=== PATIENT | female | born 1965 | race Caucasian/White ===

== ENCOUNTER 2018-03-08 08:20 | Day surgery (SDC) | payer BC ==
[2018-03-08] MEDS ORDERED: LACTATED RINGERS 1,000 ML IV ONE (09:00)
[2018-03-08] MEDS ORDERED: fentaNYL 250 MCG/5 ML VIAL IVP ONE (09:16)
[2018-03-08] MEDS ORDERED: MIDAZOLAM 2 MG/2 ML VIAL IVP ONE (09:16)
[2018-03-08 10:36] VITALS: BP 118/67
== END 2018-03-08 08:21 | disposition home or self-care (01) ==
LOC: SDS 08:20
PROVIDERS: ATTEND Surgery
PROC: 0DJD8ZZ Inspection of Lower Intestinal Tract, Via Natural or Artificial Opening Endoscopic (ICD-10-PCS; principal; 2018-03-08 09:15)
DX: Z12.11 Encounter for screening for malignant neoplasm of colon (principal); Z98.84 Bariatric surgery status; K64.8 Other hemorrhoids
CPT/HCPCS: 45378; J3010; J7120

== ENCOUNTER 2018-03-30 19:23 | Emergency (ER) | payer BC ==
[2018-03-30] MEDS ORDERED: BUFFERED LIDOCAINE 10 ML SYRINGE SUBQ STA (20:12)
[2018-03-30] MEDS ORDERED: TETANUS/DIPHTHERIA/PERTUSSIS 0.5 ML SYRINGE IM ONE (20:30)
--- NOTE | 2018-03-30 20:33 | ED Physician Documentation ---
PD HPI HEAD INJURY - Stated complaint Stated Complaint: HD INJ/BLEEDING - Chief complaint Chief Complaint: Trauma Hd/Nk - History obtained from History obtained from: Patient, Family - History of Present Illness Mechanism of head injury: Fell Where head injury occurred: Home Timing - onset: Enter time (1899), Today Location of injury: Left, Front Quality of pain: Pain Associated symptoms: No: LOC, AMS, Amnesia, Nausea / vomiting, Neck pain, Paresthesias, Seizures, Ear drainage, Nasal drainage Symptoms improve with: Rest Symptoms worsen with: Palpation, Movement Contributing factors: No: Anticoagulated Similar symptoms before: Has not had sx before Recently seen: Not recently seen - Additional information Additional information: 52-year-old female was in her home tonight when she slipped on the steps and fell against a child gait lacerating her scalp on the edge of the metal. She had no loss of consciousness denies any postconcussive symptoms. She does indicate that she was drinking heavily at the time. She does not know about her tetanus status and she has not been ill recently. Review of Systems Constitutional: denies: Fever Eyes: denies: Decreased vision Ears: denies: Ear pain Nose: denies: Congestion Throat: denies: Sore throat Respiratory: denies: Dyspnea, Cough GI: denies: Nausea : denies: Dysuria PD PAST MEDICAL HISTORY - Past Medical History Cardiovascular: Murmur Respiratory: None Endocrine/Autoimmune: None GI: None : None HEENT: Chronic vision loss Psych: None Musculoskeletal: None Derm: None - Past Surgical History Past Surgical History: Yes General: Gastric surgery Ortho: Carpal Tunnel surgery - Present Medications Home Medications: Ambulatory Orders Medication Instructions Recorded Confirmed Multivitamin-Min/Iron/FA/Vit K 1 each PO DAILY 10/16/15 10/16/15 [Multi-Day Plus Minerals Tablet] - Allergies Allergies/Adverse Reactions: Allergies Allergy/AdvReac Type Severity Reaction Status Date / Time lactose Allergy Unknown Unknown Verified 03/30/18 19:29 - Social History Does the pt smoke?: No Smoking Status: Never smoker Does the pt drink ETOH?: Yes ETOH Use: Wine Does the pt have substance abuse?: No - Immunizations Immunizations are current?: No Immunizations: TDAP >10years/unknown - POLST Patient has POLST: No PD ED PE NORMAL - Vitals Vital signs reviewed: Yes (normal ) - General General: Alert and oriented X 3, No acute distress, Well developed/nourished - HEENT HEENT: PERRL, EOMI, Other (3.5cm laceration to the left frontal scalp) - Neck Neck: Supple, no meningeal sign, No bony TTP - Respiratory Respiratory: No respiratory distress - Derm Derm: Normal color, Warm and dry, No rash - Extremities Extremities: No deformity, No edema - Neuro Neuro: Alert and oriented X 3, lock up worker 2-12 intact, No motor deficit, No sensory deficit, Normal speech Eye Opening: Spontaneous Motor: Obeys Commands Verbal: Oriented GCS Score: 15 - Psych Psych: Normal mood, Normal affect Results - Vitals Vitals: Vital Signs - 24 hr 03/30/18 19:25 Temperature 36.2 C L Heart Rate 98 Respiratory 18 Rate Blood Pressure 128/66 O2 Saturation 98 Oxygen O2 Source Room air Procedures - Laceration (location) scalp Length in cm: 3.5 Wound type: Linear, Clean Neurovascular status: Sensory intact, Motor intact, Vascular intact Anesthesia: Lidocaine 1%, With bicarb Wound Preparation: Betadine, Irrigated copiously NS, Wound explored, To the base Skin layer closure: [place] Other: Patient tolerated well, No complications, Neurovascular intact, Dressing applied, Tetanus booster given Complexity: Simple PD MEDICAL DECISION MAKING - ED course Complexity details: considered differential, d/w patient, d/w family ED course: 52-year-old female with a scalp laceration. [place] placed to the laceration. She does not have any evidence of a significant head injury. Departure - Departure Disposition: 01 Home, Self Care Clinical Impression: Scalp laceration Qualifiers: Encounter type: initial encounter Qualified Code(s): S01.01XA - Laceration without foreign body of scalp, initial encounter Condition: Stable Instructions: ED Laceration Scalp Stitch Or Stap Follow-Up: Chintan Bashir MD [Provider Admit Priv/Credential] - Comments: jyoti should be removed in 7-10 days
[2018-03-30 20:48] VITALS: BP 101/57
== END 2018-03-30 20:47 | disposition home or self-care (01) ==
LOC: ED 19:23
DX: S01.01XA Laceration without foreign body of scalp, initial encounter (principal); W10.9XXA Fall (on) (from) unspecified stairs and steps, initial encounter; Y92.009 Unspecified place in unspecified non-institutional (private) residence as the place of occurrence of the external cause; Z23 Encounter for immunization; Z72.89 Other problems related to lifestyle
CPT/HCPCS: 12002; 90471; 99282; 99283

== ENCOUNTER 2019-07-21 13:18 | Emergency (ER) | payer BC ==
--- NOTE | 2019-07-21 13:51 | ED Physician Documentation ---
History of Present Illness - Stated complaint Stated Complaint: WEAKNESS/TIRED - Chief complaint Chief Complaint: General - History obtained from History obtained from: Patient (Is a very pleasant 53-year-old woman who had a remote gastric bypass, 4 months although her partner says for years she has had upper abdominal pain after eating. Is generally slowly worsening. For the last 2 weeks per the partner she has been pale. She is our primary care physician on Thursday, per her report at that time A rectal exam was done, and negative guaiac, and labs were done. Subsequently she was noted to have a hemoglobin of 5.5, hematocrit of 22.6, platelet count of 321, MCV 63. They were trying to get her in with a studio sales associate, I presume for an upper endoscopy for presumed ulcer disease and a prescription for a PPI was called in which she has not filled yet. The GI office told her to come to the emergency department given the lack of timely follow-up and the acuity of her labs. Of note she still has menses which are quite heavy, finished her menses over the last weekend. She does not take anti-inflammatories such as Motrin or Aleve. She does drink a couple glasses of wine every day. No history of ulcer disease.) Review of Systems Ten Systems: 10 systems reviewed and negative Constitutional: reports: Fatigue. denies: Fever, Chills Cardiac: denies: Chest pain / pressure, Palpitations Respiratory: denies: Dyspnea, Cough GI: reports: Abdominal Pain. denies: Nausea, Vomiting, Constipation, Diarrhea, Hematemesis, Bloody / black stool : denies: Dysuria PD PAST MEDICAL HISTORY - Past Medical History Cardiovascular: Murmur Respiratory: None Endocrine/Autoimmune: None GI: None : None HEENT: Chronic vision loss Psych: None Musculoskeletal: None Derm: None - Past Surgical History Past Surgical History: Yes General: Gastric surgery Ortho: Carpal Tunnel surgery - Present Medications Home Medications: Ambulatory Orders Medication Instructions Recorded Confirmed Ferrous Sulfate 5 ml PO BID #300 ml 07/21/19 - Allergies Allergies/Adverse Reactions: Allergies Allergy/AdvReac Type Severity Reaction Status Date / Time lactose Allergy Unknown Unknown Verified 07/21/19 13:26 - Social History Does the pt smoke?: No Smoking Status: Never smoker Does the pt drink ETOH?: Yes Does the pt have substance abuse?: No - Family History Family history: reports: Non contributory - Immunizations Immunizations are current?: No Immunizations: TDAP >10years/unknown - POLST Patient has POLST: No PD ED PE NORMAL - Vitals Vital signs reviewed: Yes - General General: Alert and oriented X 3, Other (She is obviously pale) - HEENT HEENT: PERRL, Other (Pale sclera) - Neck Neck: Supple, no meningeal sign - Cardiac Cardiac: RRR, No murmur - Respiratory Respiratory: No respiratory distress, Clear bilaterally - Abdomen Abdomen: Soft, Non tender - Rectal Rectal: Deferred (As she had one done in the office 2 days ago with negative results) - Back Back: No CVA TTP, No spinal TTP - Derm Derm: Normal color, No rash - Extremities Extremities: No edema, No calf tenderness / cord - Neuro Neuro: Alert and oriented X 3, Normal speech Results - Vitals Vitals: Vital Signs - 24 hr 07/21/19 07/21/19 07/21/19 13:22 14:13 14:35 Temperature 36.5 C Heart Rate 70 65 60 Respiratory 18 14 15 Rate Blood Pressure 150/53 H 118/69 120/69 O2 Saturation 100 100 99 07/21/19 15:26 Temperature 98.6 C H Heart Rate 60 Respiratory 19 Rate Blood Pressure 114/62 O2 Saturation Oxygen O2 Source Room air - EKG (time done) 1358 Rate: Rate (enter#) (61) Rhythm: NSR [place]: Normal Intervals: Normal MI QRS: Low voltage Ischemia: Normal ST segments Computer interpretation: Agree with computer - Labs Labs: Laboratory Tests 07/21/19 07/21/19 07/21/19 13:42 13:42 13:42 WBC 6.3 RBC 3.71 L Hgb 5.8 L* Hct 23.6 L MCV 63.6 L MCH 15.6 L MCHC 24.6 L RDW 21.2 H Plt Count 322 MPV 10.2 Neut # (Auto) 4.4 Lymph # (Auto) 1.2 L Sawyer # (Auto) 0.6 Eos # (Auto) 0.1 Baso # (Auto) 0.0 Absolute Nucleated RBC 0.00 Nucleated RBC % 0.0 Manual Slide Review Indicated WBC Morphology NORMAL APPEARANCE Platelet Estimate NORMAL (130-450,000) Platelet Morphology NORMAL APPEARANCE RBC Morph Micro Appear 1+ SCHISTOCYTES PT 12.4 INR 1.1 Sodium 139 Potassium 3.9 Chloride 103 Carbon Dioxide 25 Anion Gap 11.0 BUN 11 Creatinine 0.5 Estimated GFR (MDRD) 129 Glucose 99 Calcium 9.4 Total Bilirubin 0.5 AST 20 ALT 20 Alkaline Phosphatase 62 Troponin I High Sens Total Protein 7.1 Albumin 4.6 Globulin 2.5 Albumin/Globulin Ratio 1.8 Lipase 32 Blood Type Antibody Screen Crossmatch IS Only 07/21/19 07/21/19 13:42 13:42 WBC RBC Hgb Hct MCV MCH MCHC RDW Plt Count MPV Neut # (Auto) Lymph # (Auto) Sawyer # (Auto) Eos # (Auto) Baso # (Auto) Absolute Nucleated RBC Nucleated RBC % Manual Slide Review WBC Morphology Platelet Estimate Platelet Morphology RBC Morph Micro Appear PT INR Sodium Potassium Chloride Carbon Dioxide Anion Gap BUN Creatinine Estimated GFR (MDRD) Glucose Calcium Total Bilirubin AST ALT Alkaline Phosphatase Troponin I High Sens 2.8 Total Protein Albumin Globulin Albumin/Globulin Ratio Lipase Blood Type A POSITIVE Antibody Screen NEGATIVE Crossmatch IS Only See Detail PD MEDICAL DECISION MAKING - ED course ED course: 53-year-old woman presents with anemia, her hemoglobin on Thursday was 5.5, today it is 5.8 suggesting this is a chronic problem. She had a similar issue when she was hospitalized 5 years ago at which time her hemoglobin was in the low sixes and received 2 units of packed cells and subsequently was getting iron infusions. She was guaiac -2 days ago. Given that, she may have some ulcer disease but I also wonder if her source is gynecologic since she still has heavy periods. Either way it seems like it is a chronic and stable issue, she will receive 2 units of packed cells in the department here and I will try to reach out to her physician to expedite follow-up. I spoke with the physician on-call for her PCP and discussed the case and recommended ongoing referrals for iron infusion, gynecology, and continued efforts to get her in with GI. Departure - Departure Disposition: 01 Home, Self Care Clinical Impression: Symptomatic anemia, Gastric bypass status for obesity Heavy periods Qualifiers: Menorrhagia type: with regular cycle Qualified Code(s): N92.0 - Excessive and frequent menstruation with regular cycle Condition: Good Record reviewed to determine appropriate education?: Yes Instructions: ED Anemia Type Not Specified Prescriptions: Ferrous Sulfate 5 ml PO BID #300 ml Comments: Your hemoglobin was actually stable compared to Thursday so I suspect most of the anemia was a chronic problem. You received 2 units of packed red cells here in the department today. You should fill the prescription for the antacid medication that your doctor gave you and start taking it today. I am also also prescribing liquid iron. Continue your B12. Your physician is referring you to a studio sales associate which I think is totally appropriate, also gynecology would be appropriate given your heavy periods. Return for new or worsening symptoms. Prescription was sent electronically to [facility] in [place].
[2019-07-21 13:57] LABS: BASOPHILS % (AUTO) 0.6 %; EOSINOPHILS # (AUTO) 0.1 10^3/uL (0.0-0.7); EOSINOPHILS % (AUTO) 0.8 %; LYMPHOCYTES # (AUTO) 1.2 10^3/uL (1.5-3.5); LYMPHOCYTES % (AUTO) 18.6 %; MEAN CORPUSCULAR HEMOGLOBIN 15.6 pg (27.0-31.0); MEAN CORPUSCULAR HGB CONC 24.6 g/dL (32.0-36.0); MEAN CORPUSCULAR VOLUME 63.6 fL (81.0-99.0); MEAN PLATELET VOLUME 10.2 fL (7.9-10.8); MONOCYTES # (AUTO) 0.6 10^3/uL (0.0-1.0); MONOCYTES % (AUTO) 9.8 %; NEUTROPHILS # (AUTO) 4.4 10^3/uL (1.5-6.6); NEUTROPHILS % (AUTO) 69.9 %; PLT - PLATELET COUNT 322 10^3/uL (130-450); RED BLOOD COUNT 3.71 10^6/uL (4.20-5.40); RED CELL DISTRIBUTION WIDTH 21.2 % (12.0-15.0); WHITE BLOOD COUNT 6.3 x10^3/uL (4.8-10.8)
[2019-07-21 14:00] LABS: HGB - HEMOGLOBIN 5.8 g/dL (12.0-16.0)
[2019-07-21 14:01] LABS: INR 1.1 (0.8-1.2); PT - PROTHROMBIN TIME 12.4 secs (9.9-12.6)
[2019-07-21 14:16] LABS: ALBUMIN 4.6 g/dL (3.2-5.5); ALBUMIN/GLOBULIN RATIO 1.8 (1.0-2.2); BILIRUBIN,TOTAL 0.5 mg/dL (0.2-1.0); CALCIUM 9.4 mg/dL (8.5-10.3); CREATININE 0.5 mg/dL (0.4-1.0); TOTAL PROTEIN 7.1 g/dL (6.7-8.2)
[2019-07-21 14:28] LABS: PLATELET ESTIMATE, MANUAL NORMAL (130-450,000) (NORMAL); PLATELET MORPHOLOGY NORMAL APPEARANCE (NORMAL)
[2019-07-21 19:03] VITALS: BP 118/74
== END 2019-07-21 19:28 | disposition home or self-care (01) ==
LOC: ED 13:18
DX: D64.9 Anemia, unspecified (principal); R10.10 Upper abdominal pain, unspecified; N92.0 Excessive and frequent menstruation with regular cycle; Z98.84 Bariatric surgery status
CPT/HCPCS: 36415; 36430; 80053; 83690; 84484; 85025; 85610; 86850; 86900; 86901; 86920; 93005; 99284; 99285; P9016

== ENCOUNTER 2020-04-13 13:13 | Outpatient (CLI) | payer BC | END 2020-04-13 13:14 | disposition home or self-care (01) | LOC: COV 13:13 | PROVIDERS: ATTEND Family Medicine | DX: M79.10 Myalgia, unspecified site (principal); R68.83 Chills (without fever); Z20.828 Contact with and (suspected) exposure to other viral communicable diseases ==

== ENCOUNTER 2022-07-04 09:20 | Outpatient (CLI) | payer BC ==
--- NOTE | 2022-07-07 10:18 | Mammography Report ---
BILATERAL DIGITAL SCREENING MAMMOGRAM 3D/2D: 07/04/2022 CLINICAL: Routine screening. Family history of breast cancer. Comparison is made to exams dated: 07/11/2010 mammogram, 07/11/2010 ultrasound, and 07/05/2010 mammogram - [facility]. There are scattered areas of fibroglandular density in both breasts (category b / 25%-50% glandular t issue). There are benign calcifications in both breasts. No significant masses, calcifications, or other findings are seen in either breast. There has been no significant interval change. IMPRESSION: BENIGN There is no mammographic evidence of malignancy. A 1 year screening mammogram is recommended. This exam was interpreted at Station ID: [id number]. NOTE: For mammograms, a report in lay terms will be sent to the patient. Approximately 15% of breast malignancies will not be visualized mammographically. In the management of a palpable breast mass, a negative mammogram must not discourage biopsy of a clinically suspicious lesion. Electronically Signed By: Bill uSltana M.D. acr/keenan:07/07/2022 08:44:10 ACR BI-RADS Category 2: Benign Finding(s) 3342F PARENCHYMAL PATTERN: (A) - The breast(s) demonstrate(s) scattered fibroglandular densities. BI-RADS CATEGORY: (2) - 2 RECOMMENDATION: (ANNUAL) - Recommend routine annual screening mammography. [id number] 1 year screening LATERALITY: (B)
== END 2022-07-04 09:21 | disposition home or self-care (01) ==
LOC: DI 09:20
PROVIDERS: ATTEND Internal Medicine
DX: Z12.31 Encounter for screening mammogram for malignant neoplasm of breast (principal); Z80.3 Family history of malignant neoplasm of breast